=== PATIENT | male | born 1985 ===

== ENCOUNTER 2017-06-21 22:15 | Emergency (ER) | payer OTHER, MEDICAID ==
[2017-06-21 22:15] VITALS: BMI 29.0
[2017-06-21] MEDS ORDERED: Oxycodone/Acetaminophen 5/325 mg Tab PO STA (22:47)
[2017-06-21 22:48] VITALS: TEMP 97.8
[2017-06-21] MEDS ORDERED: Oxycodone/Acetaminophen 5/325 mg Tab ONE (22:52)
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
[2017-06-22 01:44] VITALS: BP 118/75; PULSE 77; RESP 18
[2017-06-22 03:48] VITALS: O2SAT 97
--- NOTE | 2017-06-22 10:41 | RAD ---
PROCEDURE: Right Knee Radiographs. . HISTORY: injury COMPARISON: None. FINDINGS: BONES: There is an minimally displaced comminuted fracture traversing the lateral on aspect of the patella. Small anterior superior patella enthesophyte. JOINTS: Normal. No osteoarthritis. JOINT EFFUSION: Small suprapatellar joint effusion OTHER FINDINGS: None. IMPRESSION: Fracture of the right patella with suprapatellar joint effusion. .
--- NOTE | 2017-06-22 11:14 | RAD ---
PROCEDURE: Radiographs of the Right Shoulder HISTORY: injury COMPARISON: No prior study available comparison FINDINGS: BONES: Normal. No fracture. JOINTS: Minor degenerative osteoarthritis right glenohumeral joint. SOFT TISSUES: Normal. OTHER FINDINGS: None. IMPRESSION: No evidence of acute displaced fracture nor dislocation. Mild DJD right glenohumeral joint as above. If symptoms persist or occult fracture suspected clinically recommend repeat radiographs in 5-10 days as most fractures should become radiographically evident in this timeframe. Alternatively, CT scan could be performed.
--- NOTE | 2017-06-22 12:42 | RAD ---
PROCEDURE: Cervical spine dated 06/21/2017 note that the study is slightly limited due to partial obscuration of the odontoid by overlying incisor teeth in the open-mouth projection. Additionally, there is incomplete visualization of the C6-C7 disc space and C7 segment as well as T1 segment in the lateral projection due to overlying shoulder artifact HISTORY: Pain. COMPARISON: None. FINDINGS: BONES: No acute compression fractures no retropulsed fragments so far as can be seen within the limitation of the study DISC SPACES: Disc space heights remain relatively maintained. Small marginal anterior osteophyte formation seen arising from the anterior inferior corner of C6 as well as the C5 and to a lesser degree C4 segments. SOFT TISSUES: Normal. No prevertebral soft tissue swelling. OTHER FINDINGS: None. IMPRESSION: Slightly limited study as described. No acute fractures within limitation of the study. Minor degenerative spondylosis.
--- NOTE | 2017-06-22 13:26 | RAD ---
PROCEDURE: Radiographs of the pelvis and bilateral hips HISTORY: injury COMPARISON: None. FINDINGS: BONES: Pelvis: Unremarkable. Right hip:Unremarkable. Left hip:Unremarkable. JOINTS: Right hip: Unremarkable. Left hip: Unremarkable. Sacroiliac Joints: Unremarkable. Pubic symphysis: Unremarkable. SOFT TISSUES: Normal. OTHER FINDINGS: None. IMPRESSION: No evidence of acute displaced fracture nor dislocation.
== END 2017-06-22 01:48 | disposition home or self-care (01) ==
LOC: C.ER 22:15
DX: S82.001A Unspecified fracture of right patella, initial encounter for closed fracture (principal); S40.011A Contusion of right shoulder, initial encounter; S09.90XA Unspecified injury of head, initial encounter; V13.4XXA Pedal cycle driver injured in collision with car, pick-up truck or van in traffic accident, initial encounter
CPT/HCPCS: 72040; 73030; 73521; 73562; 96372; 99285; J2270

== ENCOUNTER 2017-11-10 16:07 | Emergency (ER) | payer MEDICAID ==
[2017-11-10 16:18] VITALS: BMI 55.3
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
[2017-11-10 16:32] LABS: BASO % 0.5 % (0.0-2.0); EOS # 0.1 K/uL (0.0-0.7); EOS % 0.7 % (0.0-4.0); HEMOGLOBIN 13.3 g/dL (12.0-18.0); LYMPH # 1.3 K/uL (1.0-4.3); LYMPH % 13.4 % (20.0-40.0); MEAN CELL VOLUME 82.2 fL (80.0-94.0); MEAN CORPUSCULAR HGB CONC 34.1 g/dL (33.0-37.0); MEAN PLATELET VOLUME 7.2 fL (7.2-11.7); MONO # 0.8 K/uL (0.0-0.8); MONO % 8.2 % (0.0-10.0); NEUT # 7.2 K/uL (1.8-7.0); NEUT % 77.2 % (50.0-75.0); NRBC % 0.1 % (0.0-2.0); RBC 4.75 Mil/uL (4.40-5.90); RED CELL DISTRIBUTION WIDTH 13.2 % (11.5-14.5); WHITE BLOOD COUNT 9.3 K/uL (4.8-10.8)
[2017-11-10 16:45] LABS: ALB/GLOB RATIO 1.1 (1.0-2.1); ALBUMIN 4.5 g/dL (3.5-5.0); ALT/SGPT 41 U/L (21-72); AST/SGOT 43 U/L (17-59); BLOOD UREA NITROGEN 17 mg/dL (9-20); CALCIUM 9.4 mg/dl (8.6-10.4); GFR AFRICAN-AMERICAN > 60; GFR NON-AFRICAN AMERICAN > 60
[2017-11-10 18:06] LABS: URINE BACTERIA RARE (<OCC); URINE BILIRUBIN NEGATIVE (NEGATIVE); URINE BLOOD NEGATIVE (NEGATIVE); URINE CLARITY Clear (Clear); URINE COLOR Yellow (YELLOW); URINE GLUCOSE (UA) NORMAL (Normal); URINE HYALINE CAST 0-2 /lpf (0-2); URINE LEUKOCYTE ESTERASE NEG Leu/uL (Negative); URINE PROTEIN 2+ mg/dL (NEGATIVE); URINE UROBILINOGEN NORMAL mg/dL (0.2-1.0)
[2017-11-10 18:12] VITALS: BP 132/69; PULSE 78; RESP 16; TEMP 98; O2SAT 98
[2017-11-10 18:12] LABS: BARBITURATES, UR NEGATIVE (NEGATIVE); BENZODIAZEPINES, UR NEGATIVE (NEGATIVE); OPIATES, UR NEGATIVE (NEGATIVE)
[2017-11-10 18:13] LABS: PHENCYCLIDINE, UR POSITIVE (NEGATIVE)
== END 2017-11-10 18:12 | disposition home or self-care (01) ==
LOC: C.ER 16:07
DX: F16.10 Hallucinogen abuse, uncomplicated (principal); Z72.0 Tobacco use

== ENCOUNTER 2017-11-28 08:22 | Emergency (ER) | payer MEDICAID ==
[2017-11-28 08:22] VITALS: BMI 31.4
--- NOTE | 2017-11-28 09:20 | C.PDOC ---
History Of Present Illness 32 y/o male presents to ED with complaints of burning and foreign body sensation to left eye for 4 days. Patient states he felt as if he had something in eye and was seen at hospital, prescribed Tobrex which he states did not improve symptoms. Patient reports now he developed redness and itching to right eye with associated body aches, sore throat, cough and fever of 100.8 which prompted visit to ED. Patient denies discharge, nausea, vomiting, vision changes , headache or any other complaints at this time. Time Seen by Provider: 11/28/17 08:42 Chief Complaint (Nursing): Eye Problem History Per: Patient History/Exam Limitations: no limitations Onset/Duration Of Symptoms: Days Current Symptoms Are (Timing): Still Present Quality: Burning, "Pain" Associated Symptoms: FB Sensation, Itching Past Medical History Reviewed: Historical Data, Nursing Documentation, Vital Signs Vital Signs: Last Vital Signs Temp 98.2 F 11/28/17 10:55 Pulse 66 11/28/17 10:55 Resp 18 11/28/17 10:55 BP 128/68 11/28/17 10:55 Pulse Ox 96 12/01/17 20:35 - Medical History PMH: Seizures Surgical History: No Surg Hx - [facility] Procedures CLOSURE SKIN & SUBCUTANEOUS NEC (01/17/14) TETANUS TOXOID ADMINIST (01/17/14) Family History: States: No Known Family Hx - Social History Hx Tobacco Use: Yes Hx Alcohol Use: Yes Hx Substance Use: Yes - Immunization History Hx Tetanus Toxoid Vaccination: Yes (less than 5 yrs ago) Hx Influenza Vaccination: No Hx Pneumococcal Vaccination: No Review Of Systems Constitutional: Positive for: Fever. Negative for: Chills Eyes: Positive for: Pain, Eyelid Inflammation, Redness. Negative for: Vision Change ENT: Positive for: Throat Pain Respiratory: Positive for: Cough Skin: Negative for: Rash Physical Exam - Physical Exam Appears: Non-toxic, No Acute Distress Skin: Warm, Dry, No Rash Head: Atraumatic, Normacephalic Eye(s): bilateral: PERRL, EOMI, Other (chemosis of left conjunctiva, no fb noted in left. ), left: Eyelid Inflammation Oral Mucosa: Moist Throat: No Erythema, No Exudate Neck: Normal ROM Cardiovascular: Rhythm Regular Respiratory: Normal Breath Sounds, No Rales, No Rhonchi, No Wheezing Gastrointestinal/Abdominal: Soft, Tenderness (Mild suprapubic), No Guarding, No Rebound Male Genital: Testicular Swelling Extremity: Capillary Refill (<2 sconds) Neurological/Psych: Oriented x3, Normal Speech Gait: Steady ED Course And Treatment O2 Sat by Pulse Oximetry: 96 (RA) Pulse Ox Interpretation: Normal Progress Note: UA ordered, Urine culture sent Medical Decision Making Medical Decision Making: pt with bilateral (left more than right) conjunctivitis and flu like symptoms. will d/c with Sowmya-flu and f/u ophtho nneka. Disposition Counseled Patient/Family Regarding: Studies Performed, Diagnosis, Need For Followup - Disposition Referrals: [facility] at [facility] [Outside] Matt Khan MD [Staff Provider] - Disposition: HOME/ ROUTINE Disposition Time: 10:57 Condition: GOOD Additional Instructions: Please follow up with Eye doctor Dr Khan as soon as possible. COntinue to use Tobrex drops 2 drops per eye every 6 hours. Take Tamiflu as directed, and Tylenol for pain or fever. Follow up with medical clinic as well in a few days. Prescriptions: Zanamivir [Relenza] 10 mg IH BID #100 mg Instructions: Flu, Adult (DC), Conjunctivitis ([place]) (DC) Forms: General Discharge Instructions, [facility] (Kinyarwanda), Work Excuse - Clinical Impression Clinical Impression: Conjunctivitis, Influenza-like illness - PA / [employer] FLO[employer]ERSON / Resident Statement MD/DO has reviewed & agrees with the documentation as recorded. - Scribe Statement The provider has reviewed the documentation as recorded by the Palomaibmaster De La Garza All medical record entries made by the Ovidio were at my direction and personally dictated by me. I have reviewed the chart and agree that the record accurately reflects my personal performance of the history, physical exam, medical decision making, and the department course for this patient. I have also personally directed, reviewed, and agree with the discharge instructions and disposition.
[2017-11-28 10:19] LABS: URINE BACTERIA RARE (<OCC); URINE BILIRUBIN NEGATIVE (NEGATIVE); URINE BLOOD NEGATIVE (NEGATIVE); URINE CLARITY Clear (Clear); URINE COLOR Yellow (YELLOW); URINE GLUCOSE (UA) NORMAL (Normal); URINE LEUKOCYTE ESTERASE NEG Leu/uL (Negative); URINE PROTEIN NEGATIVE (NEGATIVE); URINE UROBILINOGEN NORMAL mg/dL (0.2-1.0)
[2017-11-28 12:33] VITALS: BP 128/68; PULSE 66; RESP 18; TEMP 98.2; O2SAT 96
== END 2017-11-28 11:27 | disposition home or self-care (01) ==
LOC: C.ER 08:22
DX: H10.9 Unspecified conjunctivitis (principal); J11.1 Influenza due to unidentified influenza virus with other respiratory manifestations